=== PATIENT | male | born 1940 | race Caucasian/White ===

== ENCOUNTER → 2019-05-12 | Outpatient (CLI) | payer MEDICARE, SELFPAY ==
--- NOTE | 2019-05-12 14:43 | RAD_ITS ---
STUDY: X-RAY - ABDOMEN/PELVIS REASON FOR EXAM: Male, 78 years old. Right lower quadrant pain TECHNIQUE: Upright and supine KUB, 4 images. COMPARISON: None. 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 The evaluated portions of the tubing are continuous. Median sternotomy. Cholecystectomy. Apparent surgical clip at the base of the cecum may be associated with prior appendectomy. Grossly normal size and position of the solid organs of the abdomen. Unremarkable bowel pattern, moderate stool burden, not excessive. Nondilated small and large bowel with scattered gas. No free air. No acute osseous process. Thoracic and lumbar spondylosis, osteopenia, minimal degenerative features of the SI and hip joints. Aortoiliac and proximal femoral arterial calcifications are present. RAD/Abd Inc Decub and/or Erect IMPRESSION: No acute intra-abdominal process is evident. Electronically Signed: Darnell House MD at 15:16 EDT Tel , Service support ,
== END | disposition home or self-care (01) ==
LOC: MTLAB 14:38 → MTRAD 14:42
PROVIDERS: Family Provider Family Medicine; PCP Family Medicine; Referring Provider Internal Medicine Gastroenterology; Visit Provider Internal Medicine Gastroenterology
DX: R10.31 Right lower quadrant pain (principal)
CPT/HCPCS: 74019